=== PATIENT | male | born 1990 | race Caucasian/White ===

== ENCOUNTER 2019-10-22 09:19 | Emergency (ER) | payer BC ==
--- NOTE | 2019-10-22 09:43 | ERPHSYRPT ---
- History of Present Illness Time Seen by Provider: 10/22/19 09:42 Source: patient Exam Limitations: no limitations Patient Subjective Stated Complaint: L ankle pain Triage Nursing Assessment: pt to ED c/o L ankle pain. states he rolled ankle yesterday while golfing. ambulatory with limp to ED room, rates 5/10 pain when weight bearing, no pain while resting. has used ice pack and elevation yesterday after injury, pain not better today. no loss senstaion and good pulses distal to injury. cap refil < 3 sec Physician History: Patient is a 29-year-old male who presents with a chief complaint of left ankle pain. Onset reportedly was yesterday afternoon when he was playing golf and twisted his ankle causing him to invert his left foot resulting in injury. The patient reportedly was able to weight-bear on the affected ankle and foot and continue his golf game with some pain. He endorsed having a lot of swelling that he reportedly is applied ice to over the last 24 hours with resolution and a lot of the edema. Has not taken anything for pain since the incident occurred to include Tylenol and/or ibuprofen. His encouraged him to be evaluated in the emergency department and inquired about an x-ray given that he has to go to work tomorrow and did not want him walking on a broken ankle. He denies any additional injuries at this time. The pain is described as a dull ache located to the lateral aspect of the left ankle that is nonradiating constant and mild. He was offered pain medications in the emergency department but declined. Allergies/Adverse Reactions: No Known Drug Allergies Allergy (Verified 10/22/19 09:49) Home Medications: No Reportable Medications [No Reported Medications] 10/22/19 [History] Hx Tetanus, Diphtheria Vaccination/Date Given: Yes (unknown) Hx Influenza Vaccination/Date Given: No Hx Pneumococcal Vaccination/Date Given: No Travel Risk - International Travel Have you traveled outside of the country in past 3 weeks: No - Coronavirus Screening Are you exhibiting any of the following symptoms?: No Close contact with a COVID-19 positive Pt in past 14-21 Days: No - Review of Systems Constitutional: No Symptoms Eyes: No Symptoms Respiratory: No Symptoms Abdominal/Gastrointestinal: No Symptoms Genitourinary Symptoms: No Symptoms Musculoskeletal: Joint Swelling (Left ankle swelling), Other (Left ankle pain) Skin: No Symptoms Neurological: No Symptoms Psychological: No Symptoms Endocrine: No Symptoms All Other Systems: Reviewed and Negative - Past Medical History Pertinent Past Medical History: No - Past Surgical History Past Surgical History: No - Social History Smoking Status: Never smoker Exposure to second hand smoke: No Drug Use: none Patient Lives Alone: No - Nursing Vital Signs Nursing Vital Signs: Initial Vital Signs Temperature 98.4 F 10/22/19 09:29 Pulse Rate 92 H 10/22/19 09:29 Respiratory Rate 16 10/22/19 09:29 Blood Pressure 137/87 10/22/19 09:29 O2 Sat by Pulse Oximetry 96 10/22/19 09:29 Pain Scale Pain Intensity 0 - Physical Exam General Appearance: no apparent distress, alert Cardiovascular/Respiratory Exam: chest non-tender, normal breath sounds, regular rate/rhythm (DP 2 + on R and capillary refill brisk in all toes in the left foot), heart sounds normal, No no ecchymosis, No no JVD Legs Exam: left leg: normal inspection, normal range of motion, no evidence of injury, bone tenderness, pain, soft tissue tenderness, swelling Knees Exam: bilateral knee: non-tender Foot Exam: left foot: non-tender, normal inspection, normal range of motion, no evidence of injury, bone tenderness, deformity, soft tissue tenderness, other (No tenderness at the base of the 5th metatarsal) Mental Status Exam: alert, oriented x 3, cooperative Skin Exam: normal color, warm, dry, No rash, No petechiae SpO2 Interpretation: normal SpO2: 96 O2 Delivery: Room Air Procedures - Splinting Location of Splint: Left, Ankle Type of Splint: Other (Ankle stirrup) Splint Applied By: ED Nurse Pre-Proc Neuro Vasc Exam: normal Post-Proc Neuro Vasc Exam: neurovascular intact - Course Nursing assessment & vital signs reviewed: Yes - Radiology Exams Ankle X-ray Interpretation: Interpreted by me, Reviewed by me, Negative (No evidence of fracture or dislocation. Awaiting formal radiology review.) Ordered Tests: Active Orders 24 hr Category Date Time Status Splint STAT Care 10/22/19 09:49 Completed ANKLE (3 VIEWS) Stat Exams 10/22/19 11:02 Completed - Progress Progress: unchanged Counseled pt/family regarding: diagnosis, need for follow-up, rad results - Departure Departure Disposition: Home Clinical Impression: Left ankle sprain Condition: Stable Critical Care Time: No Referrals: ROSEANN VALENZUELA NP [Primary Care Provider] - Instructions: Ankle Sprain (DC), Ankle Strengthening Exercises
[2019-10-22 11:36] VITALS: BP 133/75; PULSE 82
--- NOTE | 2019-10-22 19:28 | XRAY ---
Indication: Pain following injury. Comparison: None 3 view left ankle obtained. No bony, articular, or soft tissue abnormalities.
[2019-10-22 21:13] VITALS: O2SAT 96
== END 2019-10-22 11:50 | disposition home or self-care (01) ==
LOC: ED 09:19
DX: S93.402A Sprain of unspecified ligament of left ankle, initial encounter (principal); X50.0XXA Overexertion from strenuous movement or load, initial encounter
CPT/HCPCS: 73610; 99283